=== PATIENT | female | born 1945 | race American Indian/Alaskan Native ===

== ENCOUNTER 2019-08-15 16:59 | Emergency (ER) | payer MEDICARE ==
--- NOTE | 2019-08-15 18:41 | Emergency Department Report ---
ED Shortness of Breath HPI - General Chief Complaint: Chest Pain Stated Complaint: SOB Time Seen by Provider: 08/15/19 18:14 Source: patient, EMS Mode of arrival: Stretcher Limitations: No Limitations - History of Present Illness Initial Comments: 73-year-old female with history of anxiety, ESRD, and "heart murmur", presents to the ED with shortness of breath that began while at dialysis. Patient was found to be in A. fib with RVR. Patient is somewhat poor historian, but when asked if she takes a blood thinner, patient replied yes. States she takes the medication starts with an "E". When asked if it is coumadin, pradaxa, or eliquis, pt states that it is eliquis. When asked if she has ever been told that she has an irregular heartbeat, patient states yes. Patient denies any chest pain. States her shortness of breath has currently improved. Patient reports she is on MWF dialysis schedule. She does not know the name of any of her doctors. She states they are located at [facility]. MD Complaint: shortness of breath -: This evening Severity: moderate Consistency: other (improving) Improves With: nothing Worsens With: nothing - Related Data Home Medications Medication Instructions Recorded Confirmed Last Taken Acyclovir [Zovirax Tab] 400 mg PO DAILY PRN 02/07/16 02/07/16 Unknown Allopurinol [Zyloprim] 100 mg PO QDAY 02/07/16 02/07/16 02/05/16 Aspirin [Adult Low Dose Aspirin EC] 81 mg PO DAILY 02/07/16 02/07/16 02/05/16 Esomeprazole Magnesium [NexIUM] 40 mg PO QDAY 02/07/16 02/07/16 02/05/16 Losartan [Cozaar] 25 mg PO QDAY 02/07/16 02/07/16 02/05/16 Multivit with Calcium,Iron,Min 1 tab PO DAILY 02/07/16 02/07/16 02/05/16 [Multiple Vitamins For Women] Potassium Chloride [K-Dur] 10 meq PO DAILY 02/07/16 02/07/16 02/05/16 hydrOXYzine HCl [Hydroxyzine HCl] 25 mg PO DAILY 02/07/16 02/07/16 02/05/16 hydroCHLOROthiazide [HCTZ] 25 mg PO QDAY 02/07/16 02/07/16 02/05/16 Previous Rx's Medication Instructions Recorded Last Taken Type traMADoL [Ultram 50 MG tab] 50 mg PO Q6HR PRN #20 tablet 02/07/16 Unknown Rx Allergies Allergy/AdvReac Type Severity Reaction Status Date / Time No Known Allergies Allergy Verified 02/06/16 18:21 ED Review of Systems ROS: Stated complaint: SOB Other details as noted in HPI Comment: All other systems reviewed and negative Constitutional: denies: chills, fever Respiratory: shortness of breath. denies: cough Cardiovascular: denies: chest pain, palpitations Gastrointestinal: denies: nausea, vomiting ED Past Medical Hx - Past Medical History Previous Medical History?: Yes Hx Hypertension: Yes Hx Heart Attack/AMI: Yes Hx Renal Disease: Yes ([facility]) Additional medical history: NUMBNESS TO THUMB - Social History Smoking Status: Never Smoker Substance Use Type: None - Medications Home Medications: Home Medications Medication Instructions Recorded Confirmed Last Taken Type Acyclovir [Zovirax Tab] 400 mg PO DAILY PRN 02/07/16 02/07/16 Unknown History Allopurinol [Zyloprim] 100 mg PO QDAY 02/07/16 02/07/16 02/05/16 History Aspirin [Adult Low Dose Aspirin EC] 81 mg PO DAILY 02/07/16 02/07/16 02/05/16 History Esomeprazole Magnesium [NexIUM] 40 mg PO QDAY 02/07/16 02/07/16 02/05/16 History Losartan [Cozaar] 25 mg PO QDAY 02/07/16 02/07/16 02/05/16 History Multivit with Calcium,Iron,Min 1 tab PO DAILY 02/07/16 02/07/16 02/05/16 History [Multiple Vitamins For Women] Potassium Chloride [K-Dur] 10 meq PO DAILY 02/07/16 02/07/16 02/05/16 History hydrOXYzine HCl [Hydroxyzine HCl] 25 mg PO DAILY 02/07/16 02/07/16 02/05/16 History hydroCHLOROthiazide [HCTZ] 25 mg PO QDAY 02/07/16 02/07/16 02/05/16 History traMADoL [Ultram 50 MG tab] 50 mg PO Q6HR PRN #20 tablet 02/07/16 Unknown Rx ED Physical Exam - General Limitations: No Limitations General appearance: alert, in no apparent distress - Head Head exam: Present: atraumatic, normocephalic - Eye Eye exam: Present: normal appearance - ENT ENT exam: Present: mucous membranes moist - Neck Neck exam: Present: normal inspection - Respiratory Respiratory exam: Present: normal lung sounds bilaterally, other (slightly tachypneic) - Cardiovascular Cardiovascular Exam: Present: regular rate, normal rhythm - GI/Abdominal GI/Abdominal exam: Present: soft. Absent: distended, tenderness - Extremities Exam Extremities exam: Present: normal inspection. Absent: pedal edema, calf tendern ess - Neurological Exam Neurological exam: Present: alert, oriented X3, CN II-XII intact. Absent: motor sensory deficit - Psychiatric Psychiatric exam: Present: normal affect, normal mood - Skin Skin exam: Present: warm, dry, intact, normal color ED Course Vital Signs 08/15/19 08/15/19 18:00 20:12 Temperature 97.8 F Pulse Rate 75 76 Respiratory 25 H 19 Rate Blood Pressure 179/82 Blood Pressure 192/92 [Right] O2 Sat by Pulse 100 99 Oximetry ED Medical Decision Making - Lab Data Result diagrams: 08/15/19 18:18 08/15/19 18:18 - EKG Data -: EKG Interpreted by [place] EKG shows normal: sinus rhythm, axis, intervals, QRS complexes, ST-T waves Rate: normal - EKG Data Interpretation: no acute changes, other (prolonged QT) - Radiology Data Radiology results: report reviewed, image reviewed - Medical Decision Making - normal sinus rhythm with normal rate throughout ED stay - troponin mildly elevated, likely due to her renal failure; denies chest pain and EKG shows no ST changes - CXR is normal, no resp distress, O2 sats normal - electrolytes normal, including potassium - pt feeling much better at this time - will d/c home - Differential Diagnosis pneumonia, pulm edema, Afib Critical care attestation.: If time is entered above; I have spent that time in minutes in the direct care of this critically ill patient, excluding procedure time. ED Disposition Clinical Impression: Dyspnea Disposition: DC-01 TO HOME OR SELFCARE Is pt being admited?: No Condition: Stable Instructions: Dyspnea (ED) Referrals: PRIMARY CARE, [Primary Care Provider] - 3-5 Days Time of Disposition: 21:04
[2019-08-15 19:05] LABS: Basophils % (Auto) 0.8 % (0.0-1.8); Eosinophils # (Auto) 0.1 K/mm3 (0.0-0.4); Eosinophils % (Auto) 2.1 % (0.0-4.3); Hematocrit 34.3 % (30.3-42.9); Hemoglobin 11.5 gm/dl (10.1-14.3); Lymphocytes # (Auto) 1.6 K/mm3 (1.2-5.4); Lymphocytes % (Auto) 27.2 % (13.4-35.0); Mean Corpuscular HGB Conc 33 % (30-34); Mean Corpuscular Volume 91 fl (79-97); Monocytes # (Auto) 0.8 K/mm3 (0.0-0.8); Platelet Count 194 K/mm3 (140-440); Red Blood Count 3.77 M/mm3 (3.65-5.03); Red Cell Distribution Width 15.8 % (13.2-15.2)
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
[2019-08-15 19:54] LABS: Calcium 10.2 mg/dL (8.4-10.2)
[2019-08-15 20:13] VITALS: BP 179/82
[2019-08-15 20:16] LABS: Chol/HDL Ratio 1.88 %
== END 2019-08-15 21:48 | disposition home or self-care (01) ==
LOC: ED 16:59
DX: R06.00 Dyspnea, unspecified (principal); R06.02 Shortness of breath; I10 Essential (primary) hypertension; N28.9 Disorder of kidney and ureter, unspecified; I21.9 Acute myocardial infarction, unspecified; Z79.899 Other long term (current) drug therapy
CPT/HCPCS: 36415; 71045; 80048; 80061; 84484; 85025; 93005; 93010